=== PATIENT | male | born 1985 | race Hispanic/Latino ===

== ENCOUNTER 2020-09-09 19:20 | Inpatient (IN) | payer OTHER, SELFPAY ==
[~2020-09-09 19:20] MED LIST: Iopamidol-370 76% 500 ML 1 ML ONE
[2020-09-09] MEDS ORDERED: Acetaminophen 500 MG TAB ONE (19:44)
--- NOTE | 2020-09-09 20:59 | PDOC.HHP ---
Hospitalist HPI - History of Present Illness SOB History of Present Illness: PCP: None The patient is a 35-year-old male with no significant past medical history that presents to the emergency department as a transfer from [facility] via EMS for the above complaint. Patient reports worsening shortness of breath for the past 3 days. He reports an associated dry cough, night sweats and subjective fever. Reports decreased oral intake and general malaise. He reports loss of sense of smell. He denies sore throat or nasal congestion. He has no known sick contacts. He denies headache and neck stiffness. He denies chest pain, heart palpitations and lightheadedness. He has no history of DVT/PE. He denies abdominal pain, nausea, vomiting, diarrhea. He does report increased urinary frequency and urgency. He denies any dysuria or hematuria. He reports that he went to the [place] [facility] 5 days ago, Covid test was negative and he was discharged home with some cough syrup. Because of his worsening symptoms, he presented to the [facility]. ED Course: [facility]: Presented T 100.5, tachycardic, tachypneic, hypoxic. EKG sinus tachycardia, no ST elevations. Chest x-ray positive for patchy infiltrates, bilateral patchy pneumonia, possible Covid. WBC 6.9, lymphocytopenia, lactic acid 1.3 Given: 2 L normal saline, LMWH 1 mg/kg, he azithromycin and Rocephin, dexamethasone Ty ER: VITAL SIGNS SatSep 09, 2020 19:32 JEAN PAUL Sanchez Jonathan BP: 106/68 (Left Arm), MAP: 80, Pulse: 110, Resp: 35, Temp: 100.5 (Oral), O2 sat: 95 on (Non Rebreather), Time: 09/09/2020 19:32. VITAL SIGNS SatSep 09, 2020 20:00 JEAN PAUL Sanchez Jonathan BP: 108/73 (Left Arm), MAP: 84, Pulse: 110, Resp: 33, O2 sat: 97 on (Face mask), Time: 09/09/2020 20:00. VITAL SIGNS SatSep 09, 2020 20:15 JEAN PAUL Sanchez Jonathan BP: 105/66 (Left Arm), MAP: 79, Pulse: 109, Resp: 35, Pain: 3, O2 sat: 96 on (Face mask), Time: 09/09/2020 20:15. 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 Gastrointestinal: reports: no pertinent history - Past Surgical History Past Surgical History: reports: no pertinent history - Family History Family History: reports: no pertinent history, diabetes mellitus (Mother) Other Family History: Noncontributory to this case - Social History Smoking Status: Never smoker Alcohol: reports: Occassional Drugs: reports: none Living Situation: With Family Occupation: Does not work Activity level: independent ambulation - Exam General Appearance: awake alert General - other findings: Mild respiratory distress, comfortable Eye: anicteric sclera ENT: normocephalic atraumatic Neck: supple, symmetric, no JVD Heart: no murmur, no gallops, no rubs, normal peripheral pulses Heart - other findings: Tachycardic Respiratory: rales, rhonchi, tachypneic Gastrointestinal: soft, non-tender, normal bowel sounds, no bruit, no guarding, no rigidity Extremities: no cyanosis, no edema Skin: no rashes Neurological: no focal deficits Musculoskeletal - other findings: Generalized weakness Psychiatric: normal affect, A&O x 3 Hospitalist Results - Labs Lab results: Lactic Acid 1.3 mmol/L (0.5-2.2) 09/09/20 19:42 - EKG Interpretation EKG: Sinus tachycardia - Radiology Interpretation Chest x-ray Status: report reviewed by me Additional Comment: Patchy infiltrates, bilateral patchy pneumonia, possible Covid Hospitalist H&P A/P - Problem (1) Acute respiratory failure with hypoxia Code(s): J96.01 - ACUTE RESPIRATORY FAILURE WITH HYPOXIA Status: Acute (2) Pneumonia due to 2019 novel coronavirus Code(s): U07.1 - COVID-19; J12.89 - OTHER VIRAL PNEUMONIA Status: Acute (3) Hyperglycemia Code(s): R73.9 - HYPERGLYCEMIA, UNSPECIFIED Status: Acute (4) Obesity Code(s): E66.9 - OBESITY, UNSPECIFIED Status: Chronic - Plan Plan: 35/M with no significant PMH presents for hypoxia. Admit medical floor, inpatient status. Expected length of stay greater than 2 midnights. Presented febrile T100.5F ([place]), tachycardic, tachypneic, hypoxic, NL BP. EKG sinus tachycardia. CXR bilateral patchy pneumonia, possible Covid. VBG pH 7.32, C02 49, O2 148 WBC 6.9, lymphocytopenia, LA 1.3, CRP 18.8, DD 0.57 Rapid Covid negative. #Acute respiratory failure with hypoxia Order CTA chest. Continue azithromycin, Rocephin, dexamethasone. Continue oxygen support. Consult ID. Isolation precautions. Lovenox prophylaxis. Start vitamin C and zinc. Trend acute phase reactants. #Pneumonia due to 2019 novel coronavirus Suspected. #Hyperglycemia Presented BG 363. Reports polydipsia and polyuria. Mother has diabetes. We will check hemoglobin A1c. Start moderate ISS. Accu-Cheks AC/at bedtime. Lovenox for DVT prophylaxis. GI prophylaxis. Full code. Discussed the case with Dr. Hetal Marcano.
[2020-09-09] MEDS ORDERED: Senokot S 8.6-50 MG TAB PO PRN (21:11)
[2020-09-09] MEDS ORDERED: Ondansetron PF 4 MG/2 ML Vial IVP PRN (21:11)
[2020-09-09] MEDS ORDERED: Ondansetron ODT 4 MG TAB PO PRN (21:11)
[2020-09-09] MEDS ORDERED: Dextrose 5% in Water 1,000 ML IV PRN (21:17)
[2020-09-09] MEDS ORDERED: Dextrose 50% Abboject 50 ML SYRINGE SLOW IVP PRN (21:17)
[2020-09-10 00:33] VITALS: BMI 41.5
[2020-09-10] MEDS: HumaLOG 300 UNITS/3 ML VIAL SC PRN ×4 (04:54→21:03)
[2020-09-10] MEDS ORDERED: HumaLOG 300 UNITS/3 ML VIAL SC SCH (05:30)
[2020-09-10 06:02] LABS: #Lymphocytes 0.8 thou/uL (1.20-3.40); #Monocytes 0.2 thou/uL (0.11-0.59); #Neutrophils 3.1 thou/uL (1.40-6.50); %Basophils 0.3 % (0.0-1.0); %Eosinophils 0.1 % (0.0-10.0); %Lymphocytes 19.2 % (21.0-51.0); %Monocytes 3.6 % (0.0-10.0); %Neutrophils 76.8 % (42.0-75.0); Mean Corpuscular HGB CONC 33.4 g/dL (32.0-36.0); Mean Corpuscular Hemoglobin 29.8 pg (27.0-31.0); Mean Corpuscular Volume 89.2 fL (78.0-98.0); Platelet Count 182 thou/uL (130-400); Red Blood Cell (RBC) Count 5.37 mill/uL (4.70-6.10)
[2020-09-10 06:14] LABS: Hemoglobin A1c 12.4 % (4.0-6.0)
[2020-09-10 06:36] LABS: Anion Gap 15 mmol/L (10-20); BUN (Urea Nitrogen) 23 mg/dL (8.9-20.6); Calc. Creatinine Clearance 197 mL/min (70-130); Calcium 8.3 mg/dL (7.8-10.44); Carbon Dioxide 18 mmol/L (22-29); Chloride 107 mmol/L (98-107); Estimated GFR-MDRD Greater than 90; Glucose 499 mg/dL (70-105); Potassium 4.4 mmol/L (3.5-5.1); Sodium 136 mmol/L (136-145)
--- NOTE | 2020-09-10 07:44 | CT ---
CT ANGIO OF CHEST PERFORMED WITH IV CONTRAST ENHANCEMENT WITH 3D RECONSTRUCTIONS: Date: 09/09/2020 HISTORY: COVID pneumonia, hypoxia. FINDINGS: Extensive bilateral multifocal infiltrative processes seen in both lung sanders involving both upper a nd lower lung zones. No pleural effusions. No significant hilar adenopathy. Small right paratracheal and subcarinal nodes, slightly more numerou s than typically seen, possibly reactive. Thoracic aorta is normal in caliber. Pulmonary artery opacification is less than optimal. Motion artifact degrades detail. I see no CT martin dence for any definitive pulmonary embolus. Visualized liver parenchyma shows no focal findings. IMPRESSION: 1. Extensive bilateral infiltrative lung changes. This would be compatible with COVID pneumonia. 2. No CT evidence for pulmonary embolus. POS: OFF
[2020-09-10] MEDS: Ascorbic Acid 500 mg Chewable Tablet PO SCH (09:39)
[2020-09-10] MEDS: Famotidine 20 MG TAB PO SCH ×2 (09:39→20:32)
[2020-09-10] MEDS: Zinc Sulfate 220 MG CAP PO SCH (09:39)
[2020-09-10] MEDS: Dexamethasone 4 mg/ml Vial SLOW IVP SCH (09:40)
[2020-09-10] MEDS: Enoxaparin Sodium 40 MG/0.4 ML SYRINGE SC SCH (09:40)
[2020-09-10] MEDS: Guaifenesin DM 100-10/5 ML UDCUP PO PRN ×2 (09:43→16:48)
[2020-09-10 11:57] LABS: SARS-CoV-2 MS2 Positive; SARS-CoV-2 N Gene Positive; SARS-CoV-2 S Gene Positive; SARS-CoV-2 by NAA DETECTED (NotDetected); SARS-CoV-2 orf1ab Positive
--- NOTE | 2020-09-10 14:28 | PDOC.HOSPP ---
- Subjective Encounter Date: 09/10/20 Encounter Time: 14:26 Subjective: Mr. Weinstein was seen today in follow-up of COVID pneumonia. She continues to have a cough. He notes some dyspnea. He says he started having symptoms about 2 weeks ago. - Objective Vital Signs & Weight: Vital Signs (12 hours) Temp Pulse Resp BP Pulse Ox 09/10/20 12:30 99.0 F 89 22 H 118/77 96 09/10/20 08:00 98.5 F 80 20 123/74 93 L 09/10/20 05:00 98.4 F 89 20 101/69 93 L Weight Weight 249 lb 9.012 oz I&O: 09/09/20 09/10/20 09/11/20 06:59 06:59 06:59 Output Total 1100 Balance -1100 Result Diagrams: 09/10/20 05:50 09/10/20 03:30 Additional Labs: Accuchecks 09/10/20 09/10/20 12:20 04:54 POC Glucose 466 H 475 H Hospitalist ROS - Medication Medications: Active Medications Generic Name Dose Route Start Last Admin Trade Name Freq PRN Reason Stop Dose Admin Ascorbic Acid 1,000 mg 09/10/20 09:00 09/10/20 09:39 Ascorbic Acid 500 Mg Chewable Tablet PO 1,000 mg DAILY IVONE Administration Dexamethasone 6 mg 09/10/20 09:00 09/10/20 09:40 Dexamethasone 4 Mg/Ml Vial SLOW IVP 6 mg DAILY IVONE Administration Enoxaparin Sodium 40 mg 09/10/20 09:00 09/10/20 09:40 Enoxaparin Sodium 40 Mg/0.4 Ml Syringe SC 40 mg 0900 IVONE Administration Famotidine 20 mg 09/10/20 09:00 09/10/20 09:39 Famotidine 20 Mg Tab PO 20 mg BID IVONE Administration Guaifenesin/Dextromethorphan 15 ml 09/09/20 21:11 09/10/20 09:43 Guaifenesin Dm 100-10/5 Ml Udcup PO 15 ml Q4H PRN Administration Cough Insulin Human Lispro 0 units 09/09/20 21:17 09/10/20 12:26 Humalog 300 Units/3 Ml Vial SC 10 unit .MODERATE SLIDING SC PRN Administration Moderate Correctional Scale Zinc Sulfate 220 mg 09/10/20 09:00 09/10/20 09:39 Zinc Sulfate 220 Mg Cap PO 220 mg DAILY IVONE Administration - Exam Eye: PERRL, anicteric sclera Heart: RRR, no murmur, no gallops, no rubs, normal peripheral pulses Respiratory: no wheezes, no ronchi, rales (+ rales at both bases) Gastrointestinal: soft, non-tender, non-distended, normal bowel sounds, no palpable masses, no hepatomegaly Extremities: no cyanosis, no edema (good distal pulses bilaterally) Hosp A/P (1) Acute respiratory failure with hypoxia Code(s): J96.01 - ACUTE RESPIRATORY FAILURE WITH HYPOXIA Status: Acute (2) Pneumonia due to 2019 novel coronavirus Code(s): U07.1 - COVID-19; J12.89 - OTHER VIRAL PNEUMONIA Status: Acute (3) Diabetes mellitus type 2 in obese Code(s): E11.69 - TYPE 2 DIABETES MELLITUS WITH OTHER SPECIFIED COMPLICATION; E66.9 - OBESITY, UNSPECIFIED Status: Acute - Plan * Acute respiratory failure due to COVID pneumonia- continue symptom management * Continue Decadron IV * Can discontinue Rocephin and Azithromycin * New onset Diabetes mellitus- will start Metformin tomorrow * Continue SSI, and consult diabetic education
[2020-09-10] MEDS: Acetaminophen 325 MG TAB PO PRN (16:48)
[2020-09-10] MEDS ORDERED: cefTRIAXone\\ROCEPHIN 2 GM in Sodium Chloride 0.9% 100 ML IVPB SCH (17:00)
[2020-09-10] MEDS ORDERED: Azithromycin 500 MG in Sodium Chloride 0.9% 250 ML 250 ML IVPB SCH (18:00)
--- NOTE | 2020-09-10 18:04 | CON ---
DATE OF CONSULTATION: 09/10/2020 REASON FOR CONSULTATION: Severe COVID pneumonia. HISTORY OF PRESENT ILLNESS: A 35-year-old, history of obesity, who has been ill with respiratory symptoms for the past 2 weeks with progressive dyspnea, associated with fever and night sweats, and eventually symptoms became to the extent that he had to be admitted. On arrival at [facility], he was breathing at 30 times a minute, saturations were 92% on 3 L, and he was tachycardic. CT chest showed diffuse bilateral ground-glass opacities. He is currently in the 4th floor and is awake. Has lost sense of smell. No headaches. Still with moderate dyspnea. No chest pain. No abdominal pain or diarrhea. Voiding without difficulty. No joint symptoms. No skin disorder. No neurological symptoms. MEDICAL HISTORY: Obesity. 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 He does not smoke and never smoked cigarettes. He is . ALLERGIES: NONE. FAMILY HISTORY: Noncontributory. CURRENT MEDICATIONS: 1. Vitamin C. 2. Decadron. 3. Lovenox. 4. Insulin. 5. Zinc. PHYSICAL EXAMINATION: VITAL SIGNS: Currently, he is on 3 L nasal cannula, saturating at 96%. T-max 99, blood pressure 118/77, pulse 89. SKIN: Normal. No lymphadenopathy. HEENT: Ocular movements conjugate. He has blister in his lower lip. Oral cavity normal otherwise. NECK: Supple. LUNGS: No obvious crackles or wheezing. HEART: S1 and S2, regular rate. No S3 or S4. ABDOMEN: Soft. Not distended or tender. No ascites. No bladder distention. EXTREMITIES: Moves extremities equally. NEUROLOGIC: Cognitive function appears to be intact, having to interrupt his speech pattern because of tachypnea. LABORATORY DATA: Creatinine 0.83, sodium 136, potassium 4.4. Ferritin 1177. LDH 496. COVID PCR positive. Total lymphocyte count 0.8. ASSESSMENT: Obesity. Severe COVID pneumonia, this is 14th or 15th day of illness, not eligible for remdesivir. The patient will continue on Decadron and is already on enoxaparin, and hopefully he will turn around and avoid BiPAP or intubation. Job ID: [id number] [facility]
[2020-09-11] MEDS: Acetaminophen 325 MG TAB PO PRN ×2 (04:59→19:22)
[2020-09-11] MEDS: Guaifenesin DM 100-10/5 ML UDCUP PO PRN ×3 (04:59→19:21)
[2020-09-11] MEDS: HumaLOG 300 UNITS/3 ML VIAL SC PRN ×4 (05:00→19:36)
[2020-09-11 06:10] LABS: #Lymphocytes 0.8 thou/uL (1.20-3.40); #Monocytes 0.3 thou/uL (0.11-0.59); #Neutrophils 8.4 thou/uL (1.40-6.50); %Basophils 0.1 % (0.0-1.0); %Eosinophils 0.1 % (0.0-10.0); %Lymphocytes 8.1 % (21.0-51.0); %Monocytes 3.4 % (0.0-10.0); %Neutrophils 88.4 % (42.0-75.0); Hemoglobin 15.7 g/dL (14.0-18.0); Mean Corpuscular HGB CONC 34.3 g/dL (32.0-36.0); Mean Corpuscular Hemoglobin 30.4 pg (27.0-31.0); Mean Corpuscular Volume 88.6 fL (78.0-98.0); Platelet Count 192 thou/uL (130-400); RBC Distribution Width 11.9 % (11.5-14.5); Red Blood Cell (RBC) Count 5.18 mill/uL (4.70-6.10); White Blood Cell (WBC) Count 9.5 thou/uL (4.8-10.8)
[2020-09-11 06:32] LABS: Anion Gap 13 mmol/L (10-20); BUN (Urea Nitrogen) 21 mg/dL (8.9-20.6); Calc. Creatinine Clearance 212 mL/min (70-130); Calcium 8.4 mg/dL (7.8-10.44); Carbon Dioxide 23 mmol/L (22-29); Chloride 104 mmol/L (98-107); Estimated GFR-MDRD Greater than 90; Glucose 384 mg/dL (70-105); Potassium 4.1 mmol/L (3.5-5.1); Sodium 136 mmol/L (136-145)
[2020-09-11] MEDS: Enoxaparin Sodium 40 MG/0.4 ML SYRINGE SC SCH (08:24)
[2020-09-11] MEDS: Insulin Glargine 10 UNITS in Pre-Filled Syringe 1 EACH SC SCH (08:25)
[2020-09-11] MEDS: Dexamethasone 4 mg/ml Vial SLOW IVP SCH (08:25)
[2020-09-11] MEDS: Ascorbic Acid 500 mg Chewable Tablet PO SCH (08:25)
[2020-09-11] MEDS: metFORMIN 500 MG TAB PO SCH ×2 (08:25→17:03)
[2020-09-11] MEDS: Famotidine 20 MG TAB PO SCH ×2 (08:25→19:22)
[2020-09-11] MEDS: Zinc Sulfate 220 MG CAP PO SCH (08:25)
--- NOTE | 2020-09-11 12:25 | PDOC.HOSPP ---
- Subjective Encounter Date: 09/11/20 Encounter Time: 12:22 Subjective: Mr. Weinstein was seen today in follow-up of COVID pneumonia, and new onset DM. He does not have any new complaints. - Objective Vital Signs & Weight: Vital Signs (12 hours) Temp Pulse Resp BP Pulse Ox 09/11/20 12:00 98.6 F 93 18 108/66 95 09/11/20 08:00 99.0 F 87 18 110/72 96 09/11/20 04:00 99.8 F H 91 20 93 L Weight Weight 249 lb 9.012 oz I&O: 09/10/20 09/11/20 09/12/20 06:59 06:59 06:59 Output Total 1100 Balance -1100 Result Diagrams: 09/11/20 05:54 09/11/20 05:54 Additional Labs: Accuchecks 09/11/20 09/10/20 11:42 16:41 POC Glucose 388 H 430 H Hospitalist ROS - Medication Medications: Active Medications Generic Name Dose Route Start Last Admin Trade Name Freq PRN Reason Stop Dose Admin Acetaminophen 650 mg 09/09/20 21:11 09/11/20 04:59 Acetaminophen 325 Mg Tab PO 650 mg Q4H PRN Administration Headache/Fever/Mild Pain (1-3) Ascorbic Acid 1,000 mg 09/10/20 09:00 09/11/20 08:25 Ascorbic Acid 500 Mg Chewable Tablet PO 1,000 mg DAILY IVONE Administration Dexamethasone 6 mg 09/10/20 09:00 09/11/20 08:25 Dexamethasone 4 Mg/Ml Vial SLOW IVP 6 mg DAILY IVONE Administration Enoxaparin Sodium 40 mg 09/10/20 09:00 09/11/20 08:24 Enoxaparin Sodium 40 Mg/0.4 Ml Syringe SC 40 mg 0900 IVONE Administration Famotidine 20 mg 09/10/20 09:00 09/11/20 08:25 Famotidine 20 Mg Tab PO 20 mg BID IVONE Administration Guaifenesin/Dextromethorphan 15 ml 09/09/20 21:11 09/11/20 04:59 Guaifenesin Dm 100-10/5 Ml Udcup PO 15 ml Q4H PRN Administration Cough Insulin Glargine 10 units/ 0.1 mls @ 0 mls/hr 09/11/20 09:00 09/11/20 08:25 Miscellaneous Medication SC 0.1 mls QAM IVONE Administration Insulin Human Lispro 0 units 09/09/20 21:17 09/11/20 11:30 Humalog 300 Units/3 Ml Vial SC 10 unit .MODERATE SLIDING SC PRN Administration Moderate Correctional Scale Insulin Human Lispro 0 units 09/09/20 21:17 09/10/20 21:03 Humalog 300 Units/3 Ml Vial SC 5 unit .BEDTIME SLIDING SC PRN Administration Bedtime Correctional Scale Metformin HCl 500 mg 09/11/20 08:00 09/11/20 08:25 Metformin 500 Mg Tab PO 500 mg BID-WM IVONE Administration Zinc Sulfate 220 mg 09/10/20 09:00 09/11/20 08:25 Zinc Sulfate 220 Mg Cap PO 220 mg DAILY IVONE Administration - Exam Eye: PERRL, anicteric sclera Heart: RRR, no murmur, no gallops, no rubs, normal peripheral pulses Respiratory: no wheezes, no ronchi, rales (+ rales at both bases) Gastrointestinal: soft, non-tender, non-distended, normal bowel sounds, no palpable masses, no hepatomegaly Extremities: no cyanosis, no edema Hosp A/P (1) Acute respiratory failure with hypoxia Code(s): J96.01 - ACUTE RESPIRATORY FAILURE WITH HYPOXIA Status: Acute (2) Pneumonia due to 2019 novel coronavirus Code(s): U07.1 - COVID-19; J12.89 - OTHER VIRAL PNEUMONIA Status: Acute (3) Diabetes mellitus type 2 in obese Code(s): E11.69 - TYPE 2 DIABETES MELLITUS WITH OTHER SPECIFIED COMPLICATION; E66.9 - OBESITY, UNSPECIFIED Status: Acute - Plan * Acute respiratory failure due to COVID pneumonia- continue symptom management * Continue Decadron IV * Can discontinue Rocephin and Azithromycin * New onset Diabetes mellitus- Discussed with patient. Discussed diet and exercise. Need for close outpatient follow-up. eye care, foot care, and need for renal monitoring * Continue SSI, * His only symptom from COVID remaining is that he he has a mild cough, and desaturates when he removes the supplemental oxygen. Will consult Case management for home oxygen. He does not have insurance, but may be willing to pay for it, depending on the cost.
[2020-09-12] MEDS: Acetaminophen 325 MG TAB PO PRN (04:57)
[2020-09-12 05:28] LABS: #Lymphocytes 0.9 thou/uL (1.20-3.40); #Monocytes 0.3 thou/uL (0.11-0.59); #Neutrophils 5.3 thou/uL (1.40-6.50); %Basophils 0.1 % (0.0-1.0); %Eosinophils 0.5 % (0.0-10.0); %Lymphocytes 14.3 % (21.0-51.0); %Monocytes 4.5 % (0.0-10.0); %Neutrophils 80.6 % (42.0-75.0); Hemoglobin 15.8 g/dL (14.0-18.0); Mean Corpuscular Hemoglobin 30.5 pg (27.0-31.0); Mean Corpuscular Volume 89.7 fL (78.0-98.0); Mean Platelet Volume 10.1 fL (7.4-10.4); Platelet Count 182 thou/uL (130-400); RBC Distribution Width 11.7 % (11.5-14.5); Red Blood Cell (RBC) Count 5.19 mill/uL (4.70-6.10); White Blood Cell (WBC) Count 6.5 thou/uL (4.8-10.8)
[2020-09-12 06:02] LABS: Anion Gap 14 mmol/L (10-20); BUN (Urea Nitrogen) 22 mg/dL (8.9-20.6); Calc. Creatinine Clearance 224 mL/min (70-130); Calcium 7.8 mg/dL (7.8-10.44); Carbon Dioxide 23 mmol/L (22-29); Chloride 103 mmol/L (98-107); Estimated GFR-MDRD Greater than 90; Glucose 340 mg/dL (70-105); Potassium 4.5 mmol/L (3.5-5.1); Sodium 135 mmol/L (136-145)
[2020-09-12] MEDS: Dexamethasone 4 mg/ml Vial SLOW IVP SCH (07:37)
[2020-09-12] MEDS: Famotidine 20 MG TAB PO SCH (07:37)
[2020-09-12] MEDS: Zinc Sulfate 220 MG CAP PO SCH (07:37)
[2020-09-12] MEDS: Ascorbic Acid 500 mg Chewable Tablet PO SCH (07:37)
[2020-09-12] MEDS: metFORMIN 500 MG TAB PO SCH ×3 (07:38→15:58)
[2020-09-12] MEDS: Enoxaparin Sodium 40 MG/0.4 ML SYRINGE SC SCH (07:38)
[2020-09-12] MEDS ORDERED: glyBURIDE 5 MG TAB PO SCH (08:00)
[2020-09-12] MEDS: Insulin Glargine 10 UNITS in Pre-Filled Syringe 1 EACH SC SCH (10:07)
[2020-09-12] MEDS: HumaLOG 300 UNITS/3 ML VIAL SC PRN ×2 (12:14→16:39)
--- NOTE | 2020-09-12 14:15 | PDOC.HOSPP ---
- Subjective Encounter Date: 09/12/20 Encounter Time: 14:13 Subjective: Mr. Weinstein was seen today in follow-up of COVID pneumonia. He has a cough, and his oxygen level will still drop , once the nasal canula is removed. - Objective Vital Signs & Weight: Vital Signs (12 hours) Temp Pulse Resp BP Pulse Ox 09/12/20 12:00 98.4 F 75 20 113/82 94 L 09/12/20 08:00 98.8 F 70 18 108/70 97 09/12/20 04:00 98.7 F 88 22 H 93 L Weight Weight 249 lb 9.012 oz I&O: 09/11/20 09/12/20 09/13/20 06:59 06:59 06:59 Intake Total 1000 Output Total 1100 Balance -1100 1000 Result Diagrams: 09/12/20 05:18 09/12/20 05:17 Additional Labs: Accuchecks 09/12/20 09/12/20 09/11/20 12:00 05:09 19:34 POC Glucose 266 H 334 H 404 H 09/11/20 09/11/20 09/10/20 16:58 04:56 20:46 POC Glucose 455 H 350 H 390 H Hospitalist ROS - Medication Medications: Active Medications Generic Name Dose Route Start Last Admin Trade Name Freq PRN Reason Stop Dose Admin Acetaminophen 650 mg 09/09/20 21:11 09/12/20 04:57 Acetaminophen 325 Mg Tab PO 650 mg Q4H PRN Administration Headache/Fever/Mild Pain (1-3) Ascorbic Acid 1,000 mg 09/10/20 09:00 09/12/20 07:37 Ascorbic Acid 500 Mg Chewable Tablet PO 1,000 mg DAILY IVONE Administration Dexamethasone 6 mg 09/10/20 09:00 09/12/20 07:37 Dexamethasone 4 Mg/Ml Vial SLOW IVP 6 mg DAILY IVONE Administration Enoxaparin Sodium 40 mg 09/10/20 09:00 09/12/20 07:38 Enoxaparin Sodium 40 Mg/0.4 Ml Syringe SC 40 mg 0900 IVONE Administration Famotidine 20 mg 09/10/20 09:00 09/12/20 07:37 Famotidine 20 Mg Tab PO 20 mg BID IVONE Administration Glyburide 5 mg 09/12/20 08:00 09/12/20 10:07 Glyburide 5 Mg Tab PO 5 mg QAM-WM IVONE Administration Guaifenesin/Dextromethorphan 15 ml 09/09/20 21:11 09/11/20 19:21 Guaifenesin Dm 100-10/5 Ml Udcup PO 15 ml Q4H PRN Administration Cough Insulin Glargine 10 units/ 0.1 mls @ 0 mls/hr 09/11/20 09:00 09/12/20 10:07 Miscellaneous Medication SC 0.1 mls QAM IVONE Administration Insulin Human Lispro 0 units 09/09/20 21:17 09/12/20 12:14 Humalog 300 Units/3 Ml Vial SC 6 unit .MODERATE SLIDING SC PRN Administration Moderate Correctional Scale Insulin Human Lispro 0 units 09/09/20 21:17 09/11/20 19:36 Humalog 300 Units/3 Ml Vial SC 5 unit .BEDTIME SLIDING SC PRN Administration Bedtime Correctional Scale Metformin HCl 1,000 mg 09/12/20 08:00 09/12/20 10:07 Metformin 500 Mg Tab PO 500 mg BID-WM IVONE Administration Zinc Sulfate 220 mg 09/10/20 09:00 09/12/20 07:37 Zinc Sulfate 220 Mg Cap PO 220 mg DAILY IVONE Administration - Exam Eye: PERRL, anicteric sclera Heart: RRR, no murmur, no gallops, no rubs, normal peripheral pulses Respiratory: rales (+ rales at the bases, no wheezing or rhonchi) Gastrointestinal: soft, non-tender, non-distended, normal bowel sounds, no palpable masses, no hepatomegaly Extremities: no cyanosis, no edema Musculoskeletal: normal tone, normal strength, no muscle wasting Psychiatric: normal affect, normal behavior, A&O x 3 Hosp A/P (1) Acute respiratory failure with hypoxia Code(s): J96.01 - ACUTE RESPIRATORY FAILURE WITH HYPOXIA Status: Acute (2) Pneumonia due to 2019 novel coronavirus Code(s): U07.1 - COVID-19; J12.89 - OTHER VIRAL PNEUMONIA Status: Acute (3) Diabetes mellitus type 2 in obese Code(s): E11.69 - TYPE 2 DIABETES MELLITUS WITH OTHER SPECIFIED COMPLICATION; E66.9 - OBESITY, UNSPECIFIED Status: Acute - Plan * Acute respiratory failure due to COVID pneumonia- continue symptom management * Continue Decadron IV * An order for Home Oxygen has been placed * DM- blood glucose is staill elevated- will add glypizide * Hopefully home later today, once oxygen is arranged.
[2020-09-12 16:35] VITALS: BP 96/57; TEMP 98.1
--- NOTE | 2020-09-13 03:20 | DIS ---
DATE OF ADMISSION: 09/09/2020 DATE OF DISCHARGE: 09/12/2020 The patient currently does not have a primary care physician. DISCHARGE DISPOSITION: Home. DISCHARGE DIAGNOSES: 1. Acute respiratory failure with hypoxemia. 2. COVID-19 pneumonia. 3. New onset diabetes mellitus type 2. 4. Morbid obesity with a BMI of 41.5. DISCHARGE MEDICATIONS: 1. Prednisone 40 mg p.o. daily for 7 days. 2. Glyburide 5 mg p.o. daily. 3. Metformin 1000 mg p.o. b.i.d. 4. Vitamin C 1000 mg p.o. daily. 5. Zinc 220 mg p.o. daily. IMAGING DONE DURING THE HOSPITAL STAY: The patient had a CT angiogram of the chest in which there were extensive bilateral infiltrative changes in both lungs. There was no CT evidence of pulmonary embolism. CODE STATUS: Full code. ALLERGIES: NO KNOWN DRUG ALLERGIES. HOSPITAL COURSE: Mr. Weinstein is a pleasant 35-year-old gentleman who previously had no known past medical history. He began having complaints of shortness of breath and subjective fever and cough. He was evaluated in the emergency room in [place] and then transferred to our facility due to concern for COVID pneumonia with hypoxemia. The following day, the COVID test did come back positive. He had already been placed in isolation due to anticipation of a positive COVID test. He was started on dexamethasone IV. He never required more than 2 to 3 L nasal cannula of supplemental oxygen and by the second day, his symptoms were essentially just a minor cough and that he would desaturate when the oxygen was removed. However, symptomatically, he says he felt fine. Since he was relatively younger gentleman and seemed to be clinically stable, arrangements were made for him to get oxygen at home and he could continue his self-isolation at home with the home oxygen. He also was found to be a newly diagnosed diabetic. He was started on glyburide as well as metformin during his hospital stay. Diabetic education was done by myself and he was also given written materials as well. The importance of outpatient followup was stressed, and he again was discharged on glyburide and metformin. He plans to establish a primary care physician. He has a doctor in mind, Dr. Schrader, and after he has completed his 14-day isolation, he is instructed to follow up. Job ID: [id number]
== END 2020-09-12 17:50 | disposition home or self-care (01) | DRG 177 ==
LOC: ERS 19:20 → T4-A 21:23
PROVIDERS: ADMIT Internal Medicine; ATTEND Internal Medicine
PROC: 8E0ZXY6 Isolation (ICD-10-PCS; principal; 2020-09-09)
DX: U07.1 COVID-19 (principal); J12.89 Other viral pneumonia; J96.01 Acute respiratory failure with hypoxia; Z68.41 Body mass index [BMI] 40.0-44.9, adult; E11.65 Type 2 diabetes mellitus with hyperglycemia; E66.01 Morbid (severe) obesity due to excess calories
CPT/HCPCS: 36415; 36416; 71275; 80048; 82728; 83036; 83605; 83615; 85025; 85379; 86140; 87635; 87804; 99285; J1100; J1650; J1815; Q9967; U0003